=== PATIENT | male | born 1995 | race African-American/Black ===

== ENCOUNTER 2017-08-26 17:41 | Emergency (ER) | payer OTHER, SELFPAY ==
[2017-08-26 17:58] LABS: Bilirubin Negative (Negative); Blood, Urine Trace (Negative); Glucose, Urine (Dipstick) Negative (Negative); Leukocyte Moderate (Negative); Nitrite Negative (Negative); Protein, Urine (Dipstick) 100 mg/dL (Neg-Trace)
[2017-08-26 18:13] LABS: Clarity Cloudy (Clear)
[2017-08-26 18:14] LABS: Bacteria/HPF 1+ HPF (None Seen); RBC/HPF 0-3 HPF (0-3); Squamous Epithelial 0-3 HPF (0-3)
[2017-08-26] MEDS ORDERED: cefTRIAXone\\ROCEPHIN 1 GM VIAL ONE (18:18)
[2017-08-26] MEDS ORDERED: Lidocaine 1% 20 ML MDV ONE (18:18)
[2017-08-27 01:51] LABS: Chlamydia by PCR DETECTED (NotDetected); GC by PCR DETECTED (NotDetected)
== END 2017-08-26 18:42 | disposition home or self-care (01) ==
LOC: NAV ERS 17:41
DX: N34.1 Nonspecific urethritis (principal); F17.210 Nicotine dependence, cigarettes, uncomplicated
CPT/HCPCS: 81003; 81015; 87491; 87591; 96372; J0696; J2001

== ENCOUNTER 2020-01-31 11:59 | Emergency (ER) | payer SELFPAY | END 2020-01-31 12:22 | disposition home or self-care (01) | LOC: NAV ERS 11:59 | DX: R30.0 Dysuria (principal); F17.210 Nicotine dependence, cigarettes, uncomplicated | CPT/HCPCS: 99281 ==

== ENCOUNTER 2020-09-06 08:11 | Emergency (ER) | payer OTHER, SELFPAY | END 2020-09-06 09:00 | disposition home or self-care (01) | LOC: NAV ERS 08:11 | DX: Z02.89 Encounter for other administrative examinations (principal); F17.210 Nicotine dependence, cigarettes, uncomplicated; V89.2XXA Person injured in unspecified motor-vehicle accident, traffic, initial encounter | CPT/HCPCS: 99283 ==

== ENCOUNTER 2021-01-20 22:47 | Emergency (ER) | payer SELFPAY ==
[2021-01-21 23:53] LABS: SARS-CoV-2 PCR by NAA DETECTED (NotDetected)
== END 2021-01-20 23:20 | disposition home or self-care (01) ==
LOC: NAV ERS 22:47
DX: U07.1 COVID-19 (principal); G47.00 Insomnia, unspecified; F17.210 Nicotine dependence, cigarettes, uncomplicated
CPT/HCPCS: 99283; U0003; U0005